=== PATIENT | male | born 1945 | race Caucasian/White ===

== ENCOUNTER → 2016-11-10 | Outpatient (CLI) | payer MEDICARE, BC | END | disposition home or self-care (01) | LOC: CDC 08:50 | DX: I49.9 Cardiac arrhythmia, unspecified (principal); R94.31 Abnormal electrocardiogram [ECG] [EKG]; M50.20 Other cervical disc displacement, unspecified cervical region; R20.0 Anesthesia of skin; M54.12 Radiculopathy, cervical region; M79.602 Pain in left arm | CPT/HCPCS: 93000 ==